=== PATIENT | male | born 1985 | race Caucasian/White ===

== ENCOUNTER 2024-02-21 12:26 | Inpatient (IN) | payer BC, SELFPAY ==
[2024-02-21] VITALS (7 sets, daily range): BP systolic 133–160; BP diastolic 58–110; PULSE 70–92; RESP 12–22; TEMP 36–36.7; O2SAT 97–100; BMI 45.5
--- NOTE | 2024-02-21 13:42 | EX.ED.SAOD ---
HPI History of Present Illness Chief Complaint: Substance Abuse Informant: patient Narrative Narrative: Patient states he is here to get admitted to the [facility] for alcohol. He does not use any other illicit substances. For the last for 5 years, he has been using alcohol anywhere from 80-100 proof, 1.5 L/day. His last drink was this morning. Often times he gets shaky and feels like he is in withdrawal in the mornings until he starts drinking. Right now he does not have any withdrawal symptoms. No suicidality. No other medical issues. PFSH PFSH Allergy/AdvReac Type Severity Reaction Status Date / Time No Known Allergies Allergy Verified 02/21/24 12:30 Social History (Updated 02/21/24 @ 17:[address] Brenda Navas, DO) Smokeless tobacco user: chewing tobacco alcohol intake: current alcohol intake frequency: 3 or more drinks per day substance use type: does not use ROS ROS ED Constitutional Constitutional ED: Denies chills or fever(s) Eyes Eyes: Denies change in vision or diplopia ENT ENT ED: Denies rhinorrhea or sore throat Cardiovascular Cardiovascular: Denies chest pain or palpitations Respiratory/Chest Respiratory/Chest: Denies cough or dyspnea Gastrointestinal Gastrointestinal: Denies abdominal pain, diarrhea, nausea or vomiting Genitourinary Genitourinary ED: Denies dysuria or hematuria Musculoskeletal Musculoskeletal: Denies back pain or neck pain Integumentary Denies abscess or rash Neurologic Neurologic: Denies headache(s), paresthesias or weakness Psychiatric Psychiatric: Denies anxiety or suicidal thoughts EXAM Physical Exam Const Vital Signs: 02/21/24 12:27 02/21/24 13:27 02/21/24 14:57 Temperature 96.8 F L 97.7 F L Temperature Source Temporal Pulse Rate 92 84 78 Respiratory Rate 22 H 18 19 H Blood Pressure 160/110 H 136/99 H 155/106 H Blood Pressure Mean 126 111 122 Pulse Ox 100 99 98 Oxygen Delivery Method Room Air Room Air Positive well nourished and well developed General Appearance ED: well developed and NAD HEENT Reports moist mucous membranes normocephalic and atraumatic Eyes PERRL and EOMs intact bilaterally Neck full ROM and supple Resp normal respiratory effort and clear to auscultation bilaterally Cardio regular rate, regular rhythm and no murmurs GI non-tender and non-distended Auscultation: normoactive bowel sounds Palpation: soft Back/Spine no CVA tenderness General Back: other FROM Extremity normal to inspection General Extremety ED: Negative for edema, pulses abnormal or tenderness General Extremity: Negative for edema or pulses abnormal Neuro oriented x3, CN's II-XII intact bilaterally and no sensory deficits noted Sensorium / Orientation: awake and alert Motor Exam: strength 5/5 throughout Skin no rashes or lesions noted and no wounds MDM MDM MDM Narrative Medical decision making narrative: Labs noted. Patient's alcohol is negative and he is not in acute withdrawal right now, he was given phenobarbital and will discuss with hospitalist for admission. Lab Data Attestation: I reviewed the patient's lab results. Labs: Laboratory Results - last 24 hr 02/21/24 13:59 WBC 11.5 H RBC 4.69 Hgb 16.4 Hct 48.1 MCV 102.6 H MCH 35.0 H MCHC 34.1 RDW Std Deviation 48.6 H RDW Coeff of Gema 13.0 Plt Count 350 MPV 9.6 Immature Gran % (Auto) 0.600 Neut % (Auto) 69.7 Lymph % (Auto) 19.0 [place] % (Auto) 9.9 Eos % (Auto) 0.3 Baso % (Auto) 0.5 Absolute Neuts (auto) 8.0 H Absolute Lymphs (auto) 2.18 Nucleated RBC % 0 PT 14.5 INR 1.1 Sodium 134 L Potassium 3.4 L Chloride 100 Carbon Dioxide 29.0 Anion Gap 5 BUN 4 L Creatinine 0.92 Estim Creat Clear Calc 151.46 Est GFR (MDRD) Af Amer 118 Est GFR (MDRD) Non-Af 98 BUN/Creatinine Ratio 4.4 L Glucose 96 Calcium 9.5 Total Bilirubin 1.10 H AST 78 H ALT 69 H Alkaline Phosphatase 73 Total Protein 8.2 Albumin 3.5 Globulin 4.7 H Albumin/Globulin Ratio 0.7 L Urine Opiates Screen POSITIVE H Urine Methadone Screen NEGATIVE Ur Barbiturates Screen NEGATIVE Ur Phencyclidine Scrn NEGATIVE Ur Amphetamines Screen NEGATIVE MDMA (Ecstasy) Screen NEGATIVE U Benzodiazepines Scrn NEGATIVE Urine Cocaine Screen NEGATIVE U Cannabinoids Screen NEGATIVE Ur Drug Screen Comment Ethyl Alcohol < 3.0 Management Discussion w/another healthcare provider: Hospitalist Discharge Plan Dx/Rx/DC Orders Clinical Impression: Alcohol dependence Disposition Disposition: Acute Care Hospital [facility] Discharge Date/Time: 02/21/24 16:16
[2024-02-21 14:08] LABS: Absolute Lymphocyte Count 2.18 X10^3/uL (0.83-4.51); Basophil# 0.06 X10^3/uL; Basophil% 0.5 % (0-1); Eosinophil# 0.04 X10^3/uL; Eosinophils% 0.3 % (0-5); Hematocrit 48.1 % (40-54); Hemoglobin 16.4 g/dL (13.0-16.5); Lymphocyte # 2.18 X10^3/ul (0.83-4.51); Mean Corp Hgb Conc 34.1 g/dL (32-36); Mean Corpuscular Volume 102.6 fL (80-94); Mean Platelet Vol. 9.6 fl (6.2-12.0); Monocyte# 1.13 X10^3/uL; Monocyte% 9.9 % (0-10); NRBC Flagged by Analyzer 0 % (0-5); Neutrophil # 7.97 X10^3/uL (2.7-7.7); Neutrophil % 69.7 % (47-70); Platelet Count 350 K/mm3 (150-450); RBC Distribution Width SD 48.6 fl (35.1-43.9); Red Blood Count 4.69 M/mm3 (4.6-6.2); White Blood Count 11.5 K/mm3 (4.4-11.0)
[2024-02-21] MEDS: Phenobarbital 32.4 MG Tablet 97.2 MG PO (14:11)
[2024-02-21 14:17] LABS: International Normalized Ratio 1.1; Prothrombin Time (Protime)PT. 14.5 SECONDS (11.7-14.9)
[2024-02-21 14:38] LABS: Alcohol, Blood (Medical)-Serum < 3.0 mg/dL
[2024-02-21 14:40] LABS: ALB/GLOB Ratio 0.7 RATIO (0.9-2.4); AST(SGOT) 78 U/L (15-37); Alanine Aminotransfer ALT/SGPT 69 U/L (16-61); Albumin, Serum 3.5 g/dL (3.2-5.0); Alkaline Phosphatase 73 U/L (45-117); Anion Gap 5 (5-15); BUN 4 mg/dL (7-18); BUN/Creat Ratio 4.4 RATIO (10-20); Calcium,Total 9.5 mg/dL (8.5-10.1); Chloride 100 mmol/L (98-107); Creatinine, Serum 0.92 mg/dL (0.70-1.30); EST Glomerular Filtration Rate 98 mL/min (>60); Est Glom Filt Rate - Afr Amer 118 mL/min (>60); Estimated Creatinine Clearance 151.46 ml/min; Globulin 4.7 g/dL (2.2-4.2); Glucose 96 mg/dL (74-106); Potassium 3.4 mmol/L (3.5-5.1); Protein, Total 8.2 g/dL (6.4-8.2); Sodium Level 134 mmol/L (136-145)
--- NOTE | 2024-02-21 14:59 | PCM.HP.STD ---
HPI - General General Date of Admission: 02/21/24 Date of Service: 02/21/24 Chief Complaint: EtOH Detox HPI Narrative EMELYN CISNEROS, is a 38 M who presented to the emergency department [facility] on 02/21/2020 for requesting alcohol detox and admission to the ramp program. He denies use of any other illicit substances and states that he chews tobacco-2 cans daily. He drinks 2 bottles of 80-100 proof alcohol daily and his last drink was about 8:30 in the morning of admission. He states he often gets shaky and feels like he is going withdrawal in the mornings until he starts drinking. He denies any significant withdrawal symptoms at the time of admission. He stated he went to [facility] and they instructed him to come here prior to admission therefore inpatient rehab. Vital signs on presentation showed temperature of 96.8, heart rate 92, respiratory rate 22, blood pressure 160/110 with a repeat of 136/99, and pulse ox is 100% on room air. CBC shows a mild leukocytosis without a left shift. White count is 11.5. Coags are normal. His chemistry panel shows mild hyponatremia with a sodium of 134, mild hypokalemia with a potassium of 3.4. AST and ALT are elevated at 78 and 69 respectively and total bilirubin is slightly elevated 1.10. Toxicology is positive for opiates and alcohol level is negative. He was placed on phenobarbital in the emergency department x 1 dose and request for admission was made. [facility] no medical history Allergy/AdvReac Type Severity Reaction Status Date / Time No Known Allergies Allergy Verified 02/21/24 12:30 no significant family history no surgical history Social History (Updated 02/21/24 @ 17:[address] Brenda Navas, DO) Smokeless tobacco user: chewing tobacco alcohol intake: current alcohol intake frequency: 3 or more drinks per day substance use type: does not use ROS Constitutional Constitutional: Denies anorexia, change in weight, chills, fatigue, fever(s), malaise, night sweats, weakness or other Eyes Eyes: Denies blurry vision, change in eye color, change in vision, discharge from eye(s), double vision, erythema, eye pain, loss of vision or other ENT HEENT: Denies abnormal hearing, dysphagia, ear pain, epistaxis, headache(s), hearing loss, nasal congestion, nasal discharge, post nasal drip, sinus pressure, sore throat or other Cardiovascular Cardiovascular: Denies chest pain, claudication, dyspnea on exertion, edema, lightheadedness, orthopnea, palpitations, paroxysmal nocturnal dyspnea, rapid heart rate, syncope or other Respiratory/Chest Respiratory/Chest: Denies cough, dyspnea, excessive phlegm production, hemoptysis, productive cough, shortness of breath at rest, shortness of breath with exertion, wheezing or other Gastrointestinal Gastrointestinal: Denies abdominal pain, coffee ground emesis, constipation, diarrhea, dyspepsia, hematemesis, hematochezia, loose stools, melena, nausea, vomiting or other Genitourinary Genitourinary: Denies burning urination, difficulty urinating, dysuria, hematuria, nocturia, urinary frequency, urinary hesitancy, urinary incontinence, urinary urgency or other Musculoskeletal Musculoskeletal: Denies arthralgias, back pain, joint pain, joint stiffness, joint swelling, myalgias, neck pain or other Neurologic Neurologic: Denies abnormal gait, abnormal speech, confusion, disequilibrium, dizziness, focal weakness, headache(s), numbness, paresthesias, seizure-like activity, seizures, syncope, tingling, tremor(s) or other Psychiatric Psychiatric: Denies anxiety, depression, homicidal ideation, suicidal ideation or other Endocrine Endocrinology: Denies change in body appearance, cold intolerance, excessive sweating, heat intolerance, polydipsia, polyuria or other Hematologic/Lymphatic Hematologic/Lymphatic: Denies anemia, easy bleeding, easy bruising, lymphadenopathy or other Allergic/Immunologic Allergic/Immunologic: Denies rhinitis, hives, eczemia, asthma or other Vital Signs Vital Signs Vital Signs: 02/21/24 12:27 02/21/24 13:27 02/21/24 14:57 Temperature 96.8 F L 97.7 F L Temperature Source Temporal Pulse Rate 92 84 78 Respiratory Rate 22 H 18 19 H Blood Pressure 160/110 H 136/99 H 155/106 H Blood Pressure Mean 126 111 122 Pulse Ox 100 99 98 Oxygen Delivery Method Room Air Room Air Weight Weight: 139.843 kg Body Mass Index (BMI) 45.5 Physical Exam Const alert, oriented x3, no apparent distress and well nourished; Negative for average body habitus Constitutional Narrative: Morbidly obese, middle-aged, white male, sitting up in a chair in the Emergency Department, appears comfortable, nontoxic General Appearance: cooperative HEENT normocephalic, head/scalp atraumatic, hearing grossly normal bilaterally and moist oral mucous membranes HEENT Narrative: Dentition is poor, Mallampati is 3, no thrush Eyes PERRL, EOMs intact bilaterally and conjunctivae normal Eyes Narrative: No scleral icterus Resp normal respiratory effort, no retractions, no use of accessory muscles and clear to auscultation bilaterally Auscultation: Negative for rales, rhonchi or wheezes Cardio regular rate, regular rhythm, S1 normal heart sound, S2 normal heart sound, no murmurs, no rub, no gallops and no clicks GI normal to inspection, nondistended, normoactive bowel sounds, soft to palpation and non-tender GI Narrative: Large protuberant abdomen Extremity no clubbing, cyanosis or edema Extremity Narrative: Pedal and radial pulses are 2+ Neuro oriented x3, moves all extremities and no focal motor deficits Neuro Narrative: No tremor noted at this time Psych affect normal Psych Narrative: Very pleasant, eye contact is good and patient interacts appropriately Results Lab / Micro Data 02/21/24 13:59 02/21/24 13:59 Labs: Laboratory Results - last 24 hr 02/21/24 13:59: WBC 11.5 H, RBC 4.69, Hgb 16.4, Hct 48.1, MCV 102.6 H, MCH 35.0 H, MCHC 34.1, RDW Std Deviation 48.6 H, RDW Coeff of Gema 13.0, Plt Count 350, MPV 9.6, Immature Gran % (Auto) 0.600, Neut % (Auto) 69.7, Lymph % (Auto) 19.0, [place] % (Auto) 9.9, Eos % (Auto) 0.3, Baso % (Auto) 0.5, Absolute Neuts (auto) 8.0 H, Absolute Lymphs (auto) 2.18, Nucleated RBC % 0, PT 14.5, INR 1.1, Sodium 134 L, Potassium 3.4 L, Chloride 100, Carbon Dioxide 29.0, Anion Gap 5, BUN 4 L, Creatinine 0.92, Estim Creat Clear Calc 151.46, Est GFR (MDRD) Af Amer 118, Est GFR (MDRD) Non-Af 98, BUN/Creatinine Ratio 4.4 L, Glucose 96, Calcium 9.5, Total Bilirubin 1.10 H, AST 78 H, ALT 69 H, Alkaline Phosphatase 73, Total Protein 8.2, Albumin 3.5, Globulin 4.7 H, Albumin/Globulin Ratio 0.7 L, Ur Drug Screen Comment , Ethyl Alcohol < 3.0 Assessment & Plan Assessment/Plan (1) Alcohol dependence: (2) Hypokalemia: (3) Transaminitis: PLAN: Plan Alcohol dependence with pending withdrawal -Last drink was about 830 this morning -Drinks about 1-2 bottles of 80-100 proof liquor daily -Plan is for inpatient rehab after medical detox is completed -Start phenobarbital taper -Thiamine and folate -As needed medications for symptom management -[facility] consultation Alcoholic hepatitis -Patient with mild transaminitis -Should improve as patient detoxes -will repeat in a.m. since patient is on phenobarbital Hypokalemia -Mild at 3.4 next-patient given p.o. potassium -Recheck in a.m. -Check a.m. magnesium and phosphorus level Elevated blood pressure -Unclear if this is related to withdrawal or if he is chronically blood pressure -As needed available -May need scheduled medication if pressures remain consistently high as he goes through detox -Continue to monitor Smokeless tobacco abuse -Patient states he chews 2 cans daily -21 mcg patch given -Recommend cessation Morbid obesity -BMI 45.5 -Complicates treatment, prognosis, outcomes DVT prophylaxis -Low risk-recommend early and frequent ambulation CODE STATUS -Full code as verified on admission Charges/Coding Visit Charges Inpatient E&M: 62034 Init Hosp L2
--- NOTE | 2024-02-21 15:04 | NURSING ---
MED SURG CRISTOBAL ETOH DETOX
[2024-02-21 15:05] LABS: Amphetamine Urine VISTA NEGATIVE (<1000 ng/mL); Barbiturate Urine VISTA NEGATIVE (< 200 ng/mL); Benzodiazepine Urine VISTA NEGATIVE (< 200 ng/mL); Cocaine Urine VISTA NEGATIVE (< 300 ng/mL); Ecstacy Urine VISTA NEGATIVE (< 500 ng/mL); Methadone Urine VISTA NEGATIVE (< 300 ng/mL); PCP Urine VISTA NEGATIVE (< 25 ng/mL); THC Urine VISTA NEGATIVE (< 50 ng/mL); Vista UDS pH Range 5
[2024-02-21] MEDS: Phenobarbital 32.4 MG Tablet 64.8 MG PO ×2 (17:38→22:06)
[2024-02-21] MEDS: Potassium Chloride Oral Soln 20 MEQ/15 ML UDC 40 MEQ PO (17:38)
[2024-02-22 01:25] VITALS: BP 126/65; PULSE 89; RESP 18; TEMP 36.7; O2SAT 96
[2024-02-22] MEDS: Phenobarbital 32.4 MG Tablet 64.8 MG PO ×6 (01:29→20:26)
[2024-02-22 05:25] VITALS: BP 135/71; PULSE 85; RESP 18; TEMP 36.5; O2SAT 97
[2024-02-22 06:58] LABS: Absolute Lymphocyte Count 1.86 X10^3/uL (0.83-4.51); Absolute Neutrophil Count 5.2 X10^3/uL (2.0-7.7); Basophil# 0.05 X10^3/uL; Basophil% 0.6 % (0-1); Eosinophil# 0.08 X10^3/uL; Hematocrit 42.8 % (40-54); Lymphocyte # 1.86 X10^3/ul (0.83-4.51); Lymphocyte % 22.8 % (19-41); Mean Corpuscular Hgb 35.7 pg (27.0-32.0); Mean Corpuscular Volume 101.9 fL (80-94); Mean Platelet Vol. 9.7 fl (6.2-12.0); Monocyte# 0.93 X10^3/uL; Monocyte% 11.4 % (0-10); NRBC Flagged by Analyzer 0 % (0-5); Neutrophil % 63.8 % (47-70); Platelet Count 244 K/mm3 (150-450); RBC Distribution Width SD 48.2 fl (35.1-43.9); White Blood Count 8.2 K/mm3 (4.4-11.0)
[2024-02-22 07:29] LABS: ALB/GLOB Ratio 0.7 RATIO (0.9-2.4); AST(SGOT) 50 U/L (15-37); Alanine Aminotransfer ALT/SGPT 48 U/L (16-61); Albumin, Serum 2.8 g/dL (3.2-5.0); Alkaline Phosphatase 63 U/L (45-117); Anion Gap 5 (5-15); BUN 5 mg/dL (7-18); BUN/Creat Ratio 6.7 RATIO (10-20); Chloride 102 mmol/L (98-107); Creatinine, Serum 0.74 mg/dL (0.70-1.30); EST Glomerular Filtration Rate 125 mL/min (>60); Est Glom Filt Rate - Afr Amer 151 mL/min (>60); Globulin 3.9 g/dL (2.2-4.2); Glucose 91 mg/dL (74-106); Magnesium 1.8 mg/dL (1.6-2.6); Phosphorus 3.7 mg/dL (2.5-4.9); Potassium 3.4 mmol/L (3.5-5.1); Protein, Total 6.7 g/dL (6.4-8.2); Sodium Level 135 mmol/L (136-145)
[2024-02-22] MEDS: Folic Acid 1 MG Tablet PO (09:38)
[2024-02-22] MEDS: Thiamine Hydrochloride 100 MG Tablet PO (09:38)
[2024-02-22] MEDS: Potassium Chloride Oral Tablet 20 MEQ 40 MEQ PO (09:39)
[2024-02-22 09:46] VITALS: BP 125/65; PULSE 80; RESP 18; TEMP 36.6; O2SAT 98
--- NOTE | 2024-02-22 11:11 | ADDICTION ---
Addendum entered by Verito Valencia 02/24/24 10:56: Pt will be picked up and transported to [facility] around 11:15am. Original Note: This sql report writer met with PT to conduct ASAM, MSE, AUDIT, DUDIT assessments and to plan for d/c. PT A+Ox4 and participated actively. All assessments completed and placed in PT's chart. PT plans to f/u with [facility] for follow-up in patient treatment services on morning. [facility] will transport to treatment.
--- NOTE | 2024-02-22 11:14 | PCM.PN.HOSP ---
Reason for Visit Reason for Visit: Diagnoses Hypokalemia (02/21/24) Alcohol dependence, uncomplicated (02/21/24) Elevation of levels of liver transaminase levels (02/21/24) Subjective Subjective Saw patient at bedside this morning. Sitting up comfortably in bedside chair, conversing normally, in no acute distress. Patient reports mild hand tremors at times since admission but his withdrawal symptoms have generally been well-controlled with the phenobarbital. Denies any significant sedation with the phenobarbital. Spoke with addiction medicine before I saw him and plan is for residential treatment on discharge. Patient otherwise feels well, denies any other acute concerns currently. Objective Data Objective Data Vital Signs: Vital Signs Temp Pulse Resp BP Pulse Ox O2 Del Method 98 F 80 18 125/65 H 98 Room Air 02/22/24 09:46 02/22/24 09:46 02/22/24 09:46 02/22/24 09:46 02/22/24 09:46 02/22/24 09:46 Oxygen Delivery Method Room Air Weight: 139.843 kg Body Mass Index (BMI) 45.5 Intake & Output: Intake and Output for Last 24 Hours 02/20/24 02/21/24 02/22/24 23:59 23:59 23:59 Intake Total 500 / 1000 500 / 500 Balance 500 / 1000 500 / 500 Lab / Micro Data 02/22/24 06:46 02/22/24 06:46 Labs: Laboratory Results - last 24 hr 02/21/24 13:59: WBC 11.5 H, RBC 4.69, Hgb 16.4, Hct 48.1, MCV 102.6 H, MCH 35.0 H, MCHC 34.1, RDW Std Deviation 48.6 H, RDW Coeff of Gema 13.0, Plt Count 350, MPV 9.6, Immature Gran % (Auto) 0.600, Neut % (Auto) 69.7, Lymph % (Auto) 19.0, [place] % (Auto) 9.9, Eos % (Auto) 0.3, Baso % (Auto) 0.5, Absolute Neuts (auto) 8.0 H, Absolute Lymphs (auto) 2.18, Nucleated RBC % 0, PT 14.5, INR 1.1, Sodium 134 L, Potassium 3.4 L, Chloride 100, Carbon Dioxide 29.0, Anion Gap 5, BUN 4 L, Creatinine 0.92, Estim Creat Clear Calc 151.46, Est GFR (MDRD) Af Amer 118, Est GFR (MDRD) Non-Af 98, BUN/Creatinine Ratio 4.4 L, Glucose 96, Calcium 9.5, Total Bilirubin 1.10 H, AST 78 H, ALT 69 H, Alkaline Phosphatase 73, Total Protein 8.2, Albumin 3.5, Globulin 4.7 H, Albumin/Globulin Ratio 0.7 L, Urine Opiates Screen POSITIVE H, Urine Methadone Screen NEGATIVE, Ur Barbiturates Screen NEGATIVE, Ur Phencyclidine Scrn NEGATIVE, Ur Amphetamines Screen NEGATIVE, MDMA (Ecstasy) Screen NEGATIVE, U Benzodiazepines Scrn NEGATIVE, Urine Cocaine Screen NEGATIVE, U Cannabinoids Screen NEGATIVE, Ur Drug Screen Comment , Ethyl Alcohol < 3.0 02/22/24 06:46: WBC 8.2, RBC 4.20 L, Hgb 15.0, Hct 42.8, MCV 101.9 H, MCH 35.7 H, MCHC 35.0, RDW Std Deviation 48.2 H, RDW Coeff of Gema 13.0, Plt Count 244, MPV 9.7, Immature Gran % (Auto) 0.400, Neut % (Auto) 63.8, Lymph % (Auto) 22.8, [place] % (Auto) 11.4 H, Eos % (Auto) 1.0, Baso % (Auto) 0.6, Absolute Neuts (auto) 5.2, Absolute Lymphs (auto) 1.86, Nucleated RBC % 0, Sodium 135 L, Potassium 3.4 L, Chloride 102, Carbon Dioxide 28.0, Anion Gap 5, BUN 5 L, Creatinine 0.74, Estim Creat Clear Calc 188.30, Est GFR (MDRD) Af Amer 151, Est GFR (MDRD) Non-Af 125, BUN/Creatinine Ratio 6.7 L, Glucose 91, Calcium 9.0, Phosphorus 3.7, Magnesium 1.8, Total Bilirubin 1.30 H, AST 50 H, ALT 48, Alkaline Phosphatase 63, Total Protein 6.7, Albumin 2.8 L, Globulin 3.9, Albumin/Globulin Ratio 0.7 L Physical Exam Const alert, oriented x3 and no apparent distress Constitutional Narrative: Pleasant middle-age male, morbidly obese, mild facial ruddiness noted, sitting up comfortably in bedside chair, conversing normally, in no acute distress. General Appearance: cooperative and comfortable HEENT normocephalic, head/scalp atraumatic, hearing grossly normal bilaterally, nasal mucous membranes and turbinates normal and moist oral mucous membranes Eyes PERRL, EOMs intact bilaterally and conjunctivae normal Neck full ROM Chest inspection of chest normal Resp normal respiratory effort, normal air movement, no use of accessory muscles and clear to auscultation bilaterally Cardio regular rate, regular rhythm, no murmurs and peripheral pulses 2+ throughout GI normal to inspection, nondistended, normoactive bowel sounds, soft to palpation, non-tender and non-distended Back/Spine normal ROM Extremity normal to inspection, full ROM and no pedal edema Skin no rashes or lesions noted Neuro moves all extremities and no focal motor deficits Speech: speech normal Psych mental status grossly normal Assessment & Plan Assessment/Plan (1) Alcohol abuse: (2) Desire for detoxification: (3) Transaminitis: (4) Hypokalemia: PLAN: Plan Patient is a 38-year-old male who presented to [facility] ED on 02/21/2024 for alcohol detox. 1. Alcohol abuse with pending withdrawal and desire for detoxification ? Was drinking 2 bottles of 80-100 proof alcohol daily prior to admission. Last drink on morning of admission. Has mild withdrawal symptoms often at home but no history of significant alcohol withdrawal. Has never gone through detox before. Started on phenobarbital taper with as needed medications per alcohol withdrawal order set on admission, has been tolerating phenobarbital taper well. Case management and addiction medicine following. Planning to go to residential treatment on discharge. Continue folate and thiamine while inpatient. 2. Mild alcoholic hepatitis ? Total bili 1.1, AST 78, ALT 69 on admit. Presumed secondary to mild alcoholic hepatitis. Stable on hospital day 2. No abdominal pain or discomfort. No need for further monitoring. 3. Mild hypokalemia ? Potassium 3.4 on admit. Repleting as needed. 4. Smokeless tobacco abuse ? Chews about 2 cans of tobacco daily. Nicotine patch and nicotine gum provided on admission per patient request. 5. Morbid obesity ? BMI 45 on admit. Encouraged lifestyle modifications. Complicates hospital course, care and prognosis. DVT prophylaxis: Lovenox CODE STATUS: Full code, verified Expected disposition: Residential alcohol abuse treatment, 2 to 3 days Total clinical time spent by myself addressing the patient's medical issues, reviewing all the data, and collaborating with patient's care team: 35 minutes. Charges/Coding Visit Charges Inpatient E&M: 60409 Subs Hosp L2
[2024-02-22 14:00] VITALS: BP 133/69; PULSE 115; RESP 18; TEMP 36.8; O2SAT 98
[2024-02-22 17:23] VITALS: BP 123/74; PULSE 94; RESP 18; TEMP 36.6; O2SAT 97
[2024-02-22 20:16] VITALS: BP 163/93; PULSE 85; RESP 18; TEMP 37; O2SAT 97
[2024-02-22] MEDS: hydrOXYzine PAM 25 MG Capsule 50 MG PO (20:26)
[2024-02-23 02:07] VITALS: BP 125/70; PULSE 74; RESP 18; TEMP 36.6; O2SAT 94
[2024-02-23] MEDS: Phenobarbital 32.4 MG Tablet 64.8 MG PO ×6 (02:10→20:40)
[2024-02-23 08:42] VITALS: BP 118/83; PULSE 81; RESP 18; TEMP 36.6; O2SAT 96
[2024-02-23] MEDS: Thiamine Hydrochloride 100 MG Tablet PO (08:47)
[2024-02-23] MEDS: Folic Acid 1 MG Tablet PO (08:47)
--- NOTE | 2024-02-23 12:57 | PCM.PN.HOSP ---
Reason for Visit Reason for Visit: Diagnoses Hypokalemia (02/21/24) Alcohol abuse, uncomplicated (02/21/24) Alcohol dependence, uncomplicated (02/21/24) Elevation of levels of liver transaminase levels (02/21/24) Subjective Subjective Saw patient at bedside this morning. Laying comfortably in bed, in no acute distress. Appeared similar to yesterday. Denied any withdrawal symptoms today. No other new concerns. Objective Data Objective Data Vital Signs: Vital Signs Temp Pulse Resp BP Pulse Ox O2 Del Method 97.8 F 81 18 118/83 H 96 Room Air 02/23/24 08:42 02/23/24 08:42 02/23/24 08:42 02/23/24 08:42 02/23/24 08:42 02/23/24 08:42 Oxygen Delivery Method Room Air Weight: 139.843 kg Body Mass Index (BMI) 45.5 Intake & Output: Intake and Output for Last 24 Hours 02/21/24 02/22/24 02/23/24 23:59 23:59 23:59 Intake Total 500 / 1000 1530 / 1530 1400 / 1400 Balance 500 / 1000 1530 / 1530 1400 / 1400 Lab / Micro Data 02/22/24 06:46 02/22/24 06:46 Physical Exam Const alert, oriented x3 and no apparent distress Constitutional Narrative: Pleasant middle-age male, morbidly obese, mild facial ruddiness noted, laying comfortably in bed, conversing normally, in no acute distress. General Appearance: cooperative and comfortable HEENT normocephalic, head/scalp atraumatic, hearing grossly normal bilaterally, nasal mucous membranes and turbinates normal and moist oral mucous membranes Eyes PERRL, EOMs intact bilaterally and conjunctivae normal Neck full ROM Chest inspection of chest normal Resp normal respiratory effort, normal air movement, no use of accessory muscles and clear to auscultation bilaterally Cardio regular rate, regular rhythm, no murmurs and peripheral pulses 2+ throughout GI normal to inspection, nondistended, normoactive bowel sounds, soft to palpation, non-tender and non-distended Back/Spine normal ROM Extremity normal to inspection, full ROM and no pedal edema Skin no rashes or lesions noted Neuro moves all extremities and no focal motor deficits Speech: speech normal Psych mental status grossly normal Assessment & Plan Assessment/Plan (1) Alcohol abuse: (2) Desire for detoxification: (3) Transaminitis: (4) Hypokalemia: PLAN: Plan Patient is a 38-year-old male who presented to [facility] ED on 02/21/2024 for alcohol detox. 1. Alcohol abuse with pending withdrawal and desire for detoxification ? Was drinking 2 bottles of 80-100 proof alcohol daily prior to admission. Last drink on morning of admission. Has mild withdrawal symptoms often at home but no history of significant alcohol withdrawal. Has never gone through detox before. Started on phenobarbital taper with as needed medications per alcohol withdrawal order set on admission, has been tolerating phenobarbital taper well. Case management and addiction medicine following. Planning for residential treatment on discharge. Continue folate and thiamine while inpatient. Should be medically ready for discharge on 02/23. 2. Mild alcoholic hepatitis ? Total bili 1.1, AST 78, ALT 69 on admit. Presumed secondary to mild alcoholic hepatitis. Stable on hospital day 2. No abdominal pain or discomfort. No need for further monitoring. 3. Mild hypokalemia ? Potassium 3.4 on admit. Repleting as needed. 4. Smokeless tobacco abuse ? Chews about 2 cans of tobacco daily. Nicotine patch and nicotine gum provided on admission per patient request. 5. Morbid obesity ? BMI 45 on admit. Encouraged lifestyle modifications. Complicates hospital course, care and prognosis. DVT prophylaxis: Lovenox CODE STATUS: Full code, verified Expected disposition: Residential alcohol abuse treatment, 1 to 2 days Total clinical time spent by myself addressing the patient's medical issues, reviewing all the data, and collaborating with patient's care team: 25 minutes. Charges/Coding Visit Charges Inpatient E&M: 18939 [facility] Hosp L1
[2024-02-23 14:05] VITALS: BP 142/86; PULSE 86; RESP 18; TEMP 36.4; O2SAT 97
--- NOTE | 2024-02-23 15:30 | NURSING ---
pt resting quietly, a&ox3. no signs of distress noted. denies all needs at present. charting by Sina TOPETE reviewed.
[2024-02-23 18:00] VITALS: BP 156/94; PULSE 93; RESP 17; TEMP 36.3; O2SAT 99
[2024-02-23 20:30] VITALS: BP 153/107; PULSE 91; RESP 18; TEMP 36.4; O2SAT 100
[2024-02-23] MEDS: hydrOXYzine PAM 25 MG Capsule 50 MG PO (20:40)
[2024-02-24 01:55] VITALS: BP 128/84; PULSE 79; RESP 18; TEMP 36.6; O2SAT 96
[2024-02-24] MEDS: Phenobarbital 32.4 MG Tablet 64.8 MG PO ×2 (01:58→06:12)
[2024-02-24 08:00] VITALS: BP 122/70; PULSE 73; RESP 14; RESP 16; TEMP 36.6; O2SAT 98
[2024-02-24] MEDS: Folic Acid 1 MG Tablet PO (09:18)
[2024-02-24] MEDS: Thiamine Hydrochloride 100 MG Tablet PO (09:18)
--- NOTE | 2024-02-24 10:20 | DCINST_ITS ---
Discharge Instructions Diet Discharge Diet: No restrictions Activity Discharge Activity: Return to Normal Activity Weight Bearing Status: Full weight bearing Follow Up Care Test Results: Test results from this visit will be discussed in further detail at your follow- up appointment, if applicable. Discharge Plan Admission Admit Date/Time: 02/21/24 15:00 Primary Reason for Your Visit: alcohol detox Attending Provider: Sergo Mcmillan Primary Care Provider: Care Physician,No Primary Consulting Providers: Brenda Navas; [place] Discharge Orders/Prescriptions Referrals / Follow Up: Care Physician,No Primary [Primary Care Provider] - NOT,DEFINED [Non-Staff] - Disposition Disposition (needs filled in before D/C Order can be placed): Home, Self Care
--- NOTE | 2024-02-24 10:26 | PCM.DC.SUM ---
Providers Date of Admission: 02/21/24 Date of Discharge: 02/24/24 Primary Care Physician: No Primary Care Phys Reason For Visit: ETOH DETOX Diagnosis Discharge Diagnosis (1) Alcohol abuse: Status: Acute Code(s): F10.10 - Alcohol abuse, uncomplicated (2) Desire for detoxification: Status: Acute (3) Transaminitis: Status: Acute Code(s): R74.01 - Elevation of levels of liver transaminase levels (4) Hypokalemia: Status: Acute Code(s): E87.6 - Hypokalemia Plan Final diagnosis: #1 acute alcohol withdrawal #2 chronic alcoholism #3 alcoholic hepatitis #4 hypokalemia-not felt to be significant #5 morbid obesity Hospital Course Operations None Procedures None Summary of Care Provided Minutes Spent on Discharge: 30 Hospital Course: This 38-year-old white male was seen in the emergency room at [facility] requesting services for alcohol detox, labs obtained showed elevated liver enzymes and a potassium of 3.4, patient was admitted to [place] [address] using the alcohol detox order set, he was seen in consultation by addiction social worker health services. Arrangements are made for the patient to be admitted into an inpatient detox unit when he was discharged from the hospital here. On 02/24/2024, patient was seen and examined: On examination he appeared in good health and spirits. Vital signs as documented. Skin warm and dry and without overt rashes. Neck without JVD, neck was supple, trachea midline, thyroid was normal. Lungs clear bilaterally, normal air movement was noted. Heart exam notable for regular rhythm, normal sounds and absence of murmurs, rubs or gallops. Abdomen unremarkable and without evidence of organomegaly, masses, or abdominal aortic enlargement. Bowel sounds are present, abdomen is not distended. Extremities nonedematous, no cyanosis was noted, no clubbing was noted. Neuro: Cranial nerves II through XII are grossly intact, no focal motor deficits were noted, sensation to light touch and pinprick intact, motor exam 5/5 throughout. Psych: Patient is alert and oriented x3, he does not appear anxious or depressed, he does not appear agitated. Patient was discharged into an inpatient detox alcohol facility at the time of discharge on 02/24/2024, he was in stable condition when he was discharged. Weight / BMI Weight Weight: 139.843 kg Body Mass Index (BMI) 45.5 ABG / Lab / Microbiology Data 02/22/24 06:46 02/22/24 06:46 D/C Instructions Discharge Diet: No restrictions Weight Bearing Status: Full weight bearing Meaningful Use Info Meaningful Use Meaningful Use Diagnoses (Choose all that apply): None applicable Ischemic Stroke Statin Dosing Therapy Reference: STATIN DOSE THERAPY REFERENCE: * Patients > 75 years receive moderate or high dose statin therapy. * Patients 75 years or YOUNGER should receive HIGH intensity statin dose unless contraindicated. You will be required to document reason for non-treatment if statin daily dose does not meet guidelines. HIGH DOSE STATIN THERAPY DAILY Atorvastatin > than or = to 40 mg Rosuvastatin > than or = to 20 mg Amlodipine + Atorvastatin > than or = to 2.5/40 mg Ezetimibe + Simvastatin 10/80 mg Simvastatin 80mg Discharge Plan Admission Admit Date/Time: 02/21/24 15:00 Primary Reason for Your Visit: alcohol detox Attending Provider: Sergo Mcmillan Primary Care Provider: Care Physician,No Primary Consulting Providers: Brenda Navas; [place] Discharge Orders/Prescriptions Referrals / Follow Up: Care Physician,No Primary [Primary Care Provider] - NOT,DEFINED [Non-Staff] - Disposition Disposition (needs filled in before D/C Order can be placed): Home, Self Care Charges/Coding Visit Charges Inpatient E&M: 94622 Disch Hosp
== END 2024-02-24 11:24 | disposition home or self-care (01) | DRG 897 ==
LOC: ED 13:46 → MS3 15:13
PROVIDERS: Admitting Provider Internal Medicine; Emergency Provider Emergency Medicine; Visit Provider Internal Medicine
DX: F10.239 Alcohol dependence with withdrawal, unspecified (principal); Z68.42 Body mass index [BMI] 45.0-49.9, adult; E66.01 Morbid (severe) obesity due to excess calories; K70.10 Alcoholic hepatitis without ascites; E87.6 Hypokalemia; R74.01 Elevation of levels of liver transaminase levels; Y90.0 Blood alcohol level of less than 20 mg/100 ml
CPT/HCPCS: 80053; 80307; 82077; 83735; 84100; 85025; 85610; 99284; A4216